=== PATIENT | female | born 1955 | race Caucasian/White ===

== ENCOUNTER 2021-02-05 13:30 | Inpatient (IN) | payer OTHER, BC ==
[2021-02-18] MEDS ORDERED: PEG 3350/NA SULF BICARB CL/KCL 4000 ML SOLN.RECON PO ONE (12:00)
[2021-02-18] MEDS ORDERED: PT OWN MED DRAWER 7, Y5N ONE ×3 (14:18→19:44)
[2021-02-18] MEDS: ERYTHROMYCIN BASE 250 MG TAB PO SCH ×4 (14:22→21:03)
[2021-02-18] MEDS: NEOMYCIN SO4 500 MG TABLET PO SCH ×4 (14:26→21:03)
[2021-02-18 14:34] LABS: HEMATOCRIT 27.2 % (32.4-45.2); HEMOGLOBIN 8.7 GM/dL (10.7-15.3); MCH 23.5 pg (25.7-33.7); MCHC 31.8 g/dl (32.0-36.0); MEAN CELL VOLUME 73.9 fl (80-96); PLATELET COUNT 127 10^3/uL (134-434); RBC 3.68 M/mm3 (3.60-5.2); RDW 18.6 % (11.6-15.6); WHITE BLOOD COUNT 4.3 K/mm3 (4.0-10.0)
[2021-02-18 14:37] LABS: INR 1.08 (0.83-1.09); PROTHROMBIN TIME (PATIENT) 12.6 SEC (9.7-13.0)
[2021-02-18 14:58] LABS: BLOOD UREA NITROGEN 10.3 mg/dL (7-18)
[2021-02-18 14:59] LABS: CALCIUM 8.6 mg/dL (8.5-10.1)
[2021-02-18 15:01] LABS: CREATININE 0.8 mg/dL (0.55-1.3)
[2021-02-18] MEDS ORDERED: ONDANSETRON 4 MG/2 ML VIAL IVPUSH ONE (15:50)
[2021-02-18] MEDS ORDERED: CHLORHEXIDINE GLUCONATE 4% CLEANSER FOR DECOLONIZATION TP SCH (22:00)
[2021-02-19] MEDS ORDERED: SODIUM CHLORIDE 1,000 ML IV SCH (00:05)
[2021-02-19] MEDS ORDERED: SODIUM PHOSPHATE/NA BIPHOS 133 ML ENEMA RC ONE (05:24)
[2021-02-19 07:08] LABS: BASO % 0.6 % (0-2.0); EOS % 2.1 % (0-4.5); HEMOGLOBIN 10.2 GM/dL (10.7-15.3); LYMPH % 32.4 % (8-40); MCHC 32.8 g/dl (32.0-36.0); MEAN CELL VOLUME 73.2 fl (80-96); MEAN PLT VOLUME 8.3 fl (7.5-11.1); MONO % 6.1 % (3.8-10.2); NEUT % 58.8 % (42.8-82.8); PLATELET COUNT 157 10^3/uL (134-434); RBC 4.23 M/mm3 (3.60-5.2); RDW 18.8 % (11.6-15.6); WHITE BLOOD COUNT 6.1 K/mm3 (4.0-10.0)
[2021-02-19] MEDS ORDERED: PHENAZOPYRIDINE HCL 100 MG TABLET (FP) PO ONE (07:30)
[2021-02-19] MEDS ORDERED: ERTAPENEM SODIUM 1 GM in SODIUM CHLORIDE 50 ML IVPB ONE (07:30)
[2021-02-19] MEDS ORDERED: ACETAMINOPHEN 1000 MG/100 ML VIAL IVPB ONE ×2 (07:30→17:45)
[2021-02-19] MEDS ORDERED: PROPOFOL 20 ML ONE ×2 (07:30)
[2021-02-19] MEDS ORDERED: SUCCINYLCHOLINE CHLORIDE 200 MG/10 ML SYRINGE ONE (07:31)
[2021-02-19] MEDS ORDERED: ROCURONIUM BROMIDE 50 MG/5 ML SYRINGE ONE ×2 (07:31→12:19)
[2021-02-19] MEDS ORDERED: PT OWN MED DRAWER 7, Y5N ONE ×2 (07:32→07:35)
[2021-02-19] MEDS ORDERED: ACETAMINOPHEN INJECTION 100 ML IVPB ONE (07:34)
[2021-02-19] MEDS ORDERED: DEXMEDETOMIDINE HCL 200 MCG/2 ML IVPB ONE (07:34)
[2021-02-19 07:56] LABS: CALCIUM 8.6 mg/dL (8.5-10.1)
[2021-02-19 07:57] LABS: BLOOD UREA NITROGEN 10.5 mg/dL (7-18)
[2021-02-19 08:00] LABS: CREATININE 1.1 mg/dL (0.55-1.3)
[2021-02-19] MEDS ORDERED: BUPIVACAINE LIPOSOME/PF (EXPAREL) 266 MG/20 ML VIAL ONE (08:01)
[2021-02-19] MEDS ORDERED: BUPIVACAINE HCL/PF 0.5% (5MG/ML) 10 ML VIAL ONE (08:02)
[2021-02-19] MEDS ORDERED: MIDAZOLAM HCL 2 MG/2 ML SINGLE DOSE VIAL ONE ×2 (08:08)
[2021-02-19] MEDS ORDERED: ERTAPENEM SODIUM 1 GM VIAL IVPB ONE (09:50)
[2021-02-19] MEDS ORDERED: KETAMINE HCL 200 MG/20 ML VIAL ONE (09:52)
[2021-02-19] MEDS ORDERED: PANTOPRAZOLE 40 MG TABLET PO SCH (10:00)
[2021-02-19] MEDS ORDERED: NEOSTIGMINE METHYLSULFATE 0.5 MG/ML - 10 ML MDV ONE (13:15)
[2021-02-19] MEDS ORDERED: PROMETHAZINE HCL 25 MG/1 ML VIAL IVPUSH PRN ×2 (13:37→15:04)
[2021-02-19] MEDS ORDERED: LACTATED RINGERS SOLUTION 1,000 ML IV SCH (13:45)
[2021-02-19] MEDS: SODIUM CHLORIDE 1,000 ML IV SCH (15:30)
[2021-02-19] MEDS ORDERED: oxyCODONE HCL 5 MG TABLET PO PRN ×2 (15:38→15:39)
[2021-02-19] MEDS ORDERED: morphine CARPU-JECT 4 MG/1 ML DISP.SYRIN IVPUSH PRN (15:39)
[2021-02-19] MEDS: morphine SULFATE 4 MG/ML VIAL IVPUSH PRN ×2 (17:25→23:32)
[2021-02-19] MEDS: ONDANSETRON 4 MG/2 ML VIAL IVPB PRN (17:25)
[2021-02-19] MEDS ORDERED: ACETAMINOPHEN 1000 MG/100 ML VIAL IVPB SCH (21:00)
[2021-02-19] MEDS ORDERED: CHLORHEXIDINE GLUCONATE 4% CLEANSER FOR DECOLONIZATION TP SCH (22:00)
[2021-02-20] MEDS: ACETAMINOPHEN 1000 MG/100 ML VIAL IVPB SCH ×3 (02:54→17:23)
[2021-02-20] MEDS: morphine SULFATE 4 MG/ML VIAL IVPUSH PRN ×2 (05:47→23:26)
[2021-02-20] MEDS: SODIUM CHLORIDE 1,000 ML IV SCH ×3 (05:55→22:40)
[2021-02-20] MEDS: ONDANSETRON 4 MG/2 ML VIAL IVPB PRN ×2 (05:56→23:31)
[2021-02-20 08:25] LABS: HEMATOCRIT 24.8 % (32.4-45.2); HEMOGLOBIN 8.1 GM/dL (10.7-15.3); LYMPH % 10.9 % (8-40); MCH 24.2 pg (25.7-33.7); MCHC 32.4 g/dl (32.0-36.0); MEAN CELL VOLUME 74.7 fl (80-96); MONO % 5.3 % (3.8-10.2); NEUT % 83.8 % (42.8-82.8); PLATELET COUNT 132 10^3/uL (134-434); RBC 3.33 M/mm3 (3.60-5.2); RDW 18.4 % (11.6-15.6); WHITE BLOOD COUNT 10.7 K/mm3 (4.0-10.0)
[2021-02-20 08:56] LABS: CALCIUM 8.1 mg/dL (8.5-10.1)
[2021-02-20 08:57] LABS: BLOOD UREA NITROGEN 10.5 mg/dL (7-18)
[2021-02-20 09:00] LABS: CREATININE 0.9 mg/dL (0.55-1.3)
[2021-02-20] MEDS: PANTOPRAZOLE SODIUM 40 MG VIAL IVPUSH SCH (10:39)
[2021-02-20] MEDS: ENOXAPARIN NA (PORCINE) 40 MG/0.4 ML DISP.SYRIN SQ SCH (10:39)
[2021-02-20 12:47] VITALS: BMI 26.7
[2021-02-21] MEDS: morphine SULFATE 4 MG/ML VIAL IVPUSH PRN ×2 (07:52→21:43)
[2021-02-21 09:09] LABS: BASO % 0.1 % (0-2.0); EOS % 0.2 % (0-4.5); HEMATOCRIT 23.3 % (32.4-45.2); HEMOGLOBIN 7.7 GM/dL (10.7-15.3); LYMPH % 16.3 % (8-40); MCH 24.7 pg (25.7-33.7); MCHC 33.2 g/dl (32.0-36.0); MEAN CELL VOLUME 74.3 fl (80-96); MEAN PLT VOLUME 8.8 fl (7.5-11.1); MONO % 4.9 % (3.8-10.2); NEUT % 78.5 % (42.8-82.8); PLATELET COUNT 124 10^3/uL (134-434); RBC 3.14 M/mm3 (3.60-5.2); WHITE BLOOD COUNT 9.1 K/mm3 (4.0-10.0)
[2021-02-21 09:23] LABS: CALCIUM 8.1 mg/dL (8.5-10.1)
[2021-02-21 09:24] LABS: BLOOD UREA NITROGEN 9.9 mg/dL (7-18)
[2021-02-21 09:27] LABS: CREATININE 0.9 mg/dL (0.55-1.3)
[2021-02-21] MEDS: ENOXAPARIN NA (PORCINE) 40 MG/0.4 ML DISP.SYRIN SQ SCH (09:41)
[2021-02-21] MEDS: PANTOPRAZOLE SODIUM 40 MG VIAL IVPUSH SCH (09:41)
[2021-02-21] MEDS: SODIUM CHLORIDE 1,000 ML IV SCH ×2 (09:45→17:02)
[2021-02-22 09:56] LABS: BASO % 0.3 % (0-2.0); EOS % 1.4 % (0-4.5); HEMATOCRIT 24.7 % (32.4-45.2); LYMPH % 15.3 % (8-40); MCH 24.5 pg (25.7-33.7); MCHC 32.4 g/dl (32.0-36.0); MEAN CELL VOLUME 75.7 fl (80-96); MEAN PLT VOLUME 8.8 fl (7.5-11.1); MONO % 5.1 % (3.8-10.2); NEUT % 77.9 % (42.8-82.8); PLATELET COUNT 153 10^3/uL (134-434); RBC 3.27 M/mm3 (3.60-5.2); RDW 18.9 % (11.6-15.6); WHITE BLOOD COUNT 8.2 K/mm3 (4.0-10.0)
[2021-02-22] MEDS: PANTOPRAZOLE SODIUM 40 MG VIAL IVPUSH SCH (10:16)
[2021-02-22] MEDS: ENOXAPARIN NA (PORCINE) 40 MG/0.4 ML DISP.SYRIN SQ SCH (10:16)
[2021-02-22 10:26] LABS: ALBUMIN 2.6 g/dl (3.4-5.0); BLOOD UREA NITROGEN 8.4 mg/dL (7-18)
[2021-02-22 10:29] LABS: CREATININE 0.8 mg/dL (0.55-1.3)
[2021-02-22 10:31] LABS: BILIRUBIN,TOTAL 0.9 mg/dL (0.2-1); TOT PROT 6.4 g/dl (6.4-8.2)
[2021-02-22] MEDS: SODIUM CHLORIDE 1,000 ML IV SCH (15:01)
[2021-02-23 08:28] LABS: BASO % 0.2 % (0-2.0); EOS % 0.6 % (0-4.5); HEMATOCRIT 26.5 % (32.4-45.2); HEMOGLOBIN 8.5 GM/dL (10.7-15.3); LYMPH % 14.7 % (8-40); MCH 24.3 pg (25.7-33.7); MEAN PLT VOLUME 8.3 fl (7.5-11.1); MONO % 3.8 % (3.8-10.2); NEUT % 80.7 % (42.8-82.8); PLATELET COUNT 176 10^3/uL (134-434); RBC 3.49 M/mm3 (3.60-5.2); RDW 19.1 % (11.6-15.6); WHITE BLOOD COUNT 6.1 K/mm3 (4.0-10.0)
[2021-02-23 09:01] LABS: BLOOD UREA NITROGEN 6.1 mg/dL (7-18); CALCIUM 8.2 mg/dL (8.5-10.1)
[2021-02-23 09:02] LABS: ALBUMIN 2.6 g/dl (3.4-5.0)
[2021-02-23 09:04] LABS: CREATININE 0.8 mg/dL (0.55-1.3)
[2021-02-23 09:06] LABS: TOT PROT 6.7 g/dl (6.4-8.2)
[2021-02-23 09:07] LABS: BILIRUBIN,TOTAL 1.3 mg/dL (0.2-1)
[2021-02-23] MEDS: PANTOPRAZOLE SODIUM 40 MG VIAL IVPUSH SCH (09:28)
[2021-02-23] MEDS ORDERED: ONDANSETRON 4 MG/2 ML VIAL IVPUSH PRN (17:55)
[2021-02-23] MEDS ORDERED: POTASSIUM CHLORIDE TABS 20 MEQ TABLET.ER (FP) PO ONE (18:19)
[2021-02-23] MEDS: DEXTROSE 5%-0.45% SALINE 1,000 ML IV SCH (20:44)
[2021-02-23] MEDS: POTASSIUM CHLORIDE TABS 20 MEQ TABLET.ER (FP) PO ONE ×2 (21:10→21:46)
[2021-02-23] MEDS ORDERED: DOCUSATE SODIUM 100 MG CAPSULE (FP) PO SCH (22:00)
[2021-02-24 01:00] LABS: BASO % 0.1 % (0-2.0); EOS % 0.5 % (0-4.5); HEMATOCRIT 24.9 % (32.4-45.2); LYMPH % 11.6 % (8-40); MCH 23.9 pg (25.7-33.7); MCHC 32.3 g/dl (32.0-36.0); MEAN CELL VOLUME 73.9 fl (80-96); MEAN PLT VOLUME 7.8 fl (7.5-11.1); MONO % 6.1 % (3.8-10.2); NEUT % 81.7 % (42.8-82.8); PLATELET COUNT 181 10^3/uL (134-434); RBC 3.36 M/mm3 (3.60-5.2); RDW 19.6 % (11.6-15.6)
[2021-02-24 01:21] LABS: CHLORIDE 106 mmol/L (98-107); SODIUM 141 mmol/L (136-145)
[2021-02-24 01:23] LABS: CALCIUM 8.2 mg/dL (8.5-10.1)
[2021-02-24 01:24] LABS: ALBUMIN 2.3 g/dl (3.4-5.0); BLOOD UREA NITROGEN 7.5 mg/dL (7-18); CO2 26 mmol/L (21-32); GLUCOSE,RANDOM 132 mg/dL (74-106); MAGNESIUM 1.8 mg/dL (1.8-2.4)
[2021-02-24 01:27] LABS: CREATININE 0.8 mg/dL (0.55-1.3); SGOT/AST 33 U/L (15-37); SGPT/ALT 21 U/L (13-61)
[2021-02-24 01:28] LABS: PHOSPHOROUS 2.8 mg/dL (2.5-4.9)
[2021-02-24 01:29] LABS: BILIRUBIN,TOTAL 1.3 mg/dL (0.2-1); TOT PROT 6.2 g/dl (6.4-8.2)
[2021-02-24 01:30] LABS: ALK PHOS 84 U/L (45-117)
[2021-02-24 01:43] LABS: ANION GAP 9 MMOL/L (8-16)
[2021-02-24] MEDS: KCL 10 MEQ IVPB 10 MEQ/100 ML INFUS.BAG IVPB SCH ×6 (02:35→13:58)
[2021-02-24] MEDS ORDERED: PROCHLORPERAZINE INJECTION 10 MG/2 ML VIAL IVPB ONE (02:57)
[2021-02-24] MEDS ORDERED: LABETALOL HCL 5 MG/1 ML (100MG/20 ML VIAL) IVPUSH ONE (02:58)
[2021-02-24] MEDS ORDERED: PT OWN MED DRAWER 7, Y5N ONE ×2 (04:54→09:50)
[2021-02-24] MEDS ORDERED: POTASSIUM CHLORIDE TABS 20 MEQ TABLET.ER (FP) PO ONE (08:00)
[2021-02-24 09:23] LABS: EOS % 0.3 % (0-4.5); HEMATOCRIT 25.5 % (32.4-45.2); HEMOGLOBIN 8.4 GM/dL (10.7-15.3); MCH 24.4 pg (25.7-33.7); MCHC 32.7 g/dl (32.0-36.0); MEAN CELL VOLUME 74.6 fl (80-96); MEAN PLT VOLUME 8.4 fl (7.5-11.1); MONO % 5.1 % (3.8-10.2); NEUT % 85.6 % (42.8-82.8); PLATELET COUNT 207 10^3/uL (134-434); RBC 3.42 M/mm3 (3.60-5.2); RDW 19.8 % (11.6-15.6); WHITE BLOOD COUNT 10.3 K/mm3 (4.0-10.0)
[2021-02-24 09:35] LABS: CALCIUM 8.4 mg/dL (8.5-10.1)
[2021-02-24 09:36] LABS: ALBUMIN 2.4 g/dl (3.4-5.0)
[2021-02-24 09:39] LABS: CREATININE 0.7 mg/dL (0.55-1.3)
[2021-02-24 09:40] LABS: BILIRUBIN,TOTAL 1.1 mg/dL (0.2-1); TOT PROT 6.4 g/dl (6.4-8.2)
[2021-02-24] MEDS: PANTOPRAZOLE 40 MG TABLET PO SCH (09:50)
[2021-02-24] MEDS: DEXTROSE 5%-0.45% SALINE 1,000 ML IV SCH (20:42)
[2021-02-25] MEDS: ENOXAPARIN NA (PORCINE) 40 MG/0.4 ML DISP.SYRIN SQ SCH (09:30)
[2021-02-25] MEDS: PANTOPRAZOLE 40 MG TABLET PO SCH (09:30)
[2021-02-25 09:31] LABS: BASO % 0.1 % (0-2.0); EOS % 1.3 % (0-4.5); HEMATOCRIT 25.8 % (32.4-45.2); HEMOGLOBIN 8.3 GM/dL (10.7-15.3); LYMPH % 9.2 % (8-40); MCH 24.6 pg (25.7-33.7); MCHC 32.4 g/dl (32.0-36.0); MEAN CELL VOLUME 75.8 fl (80-96); MEAN PLT VOLUME 8.4 fl (7.5-11.1); MONO % 7.4 % (3.8-10.2); PLATELET COUNT 194 10^3/uL (134-434); RDW 19.7 % (11.6-15.6); WHITE BLOOD COUNT 9.7 K/mm3 (4.0-10.0)
[2021-02-25] MEDS: DEXTROSE 5%-0.45% SALINE 1,000 ML IV SCH (12:26)
[2021-02-25 17:15] LABS: BLOOD UREA NITROGEN 13.3 mg/dL (7-18); CALCIUM 8.1 mg/dL (8.5-10.1)
[2021-02-25 18:25] LABS: BLOOD UREA NITROGEN 12.5 mg/dL (7-18); CALCIUM 8.2 mg/dL (8.5-10.1); CREATININE 0.9 mg/dL (0.55-1.3)
[2021-02-25] MEDS ORDERED: POTASSIUM CHLORIDE TABS 20 MEQ TABLET.ER (FP) PO ONE (18:45)
[2021-02-25] MEDS: KCL 10 MEQ IVPB 10 MEQ/100 ML INFUS.BAG IVPB SCH ×3 (18:45→23:30)
[2021-02-26] MEDS ORDERED: ACETAMINOPHEN 325 MG TABLET (FP) PO ONE (04:30)
[2021-02-26 08:50] LABS: BASO % 0.2 % (0-2.0); EOS % 1.8 % (0-4.5); HEMATOCRIT 23.9 % (32.4-45.2); HEMOGLOBIN 7.6 GM/dL (10.7-15.3); LYMPH % 11.1 % (8-40); MCH 24.1 pg (25.7-33.7); MEAN CELL VOLUME 75.4 fl (80-96); MEAN PLT VOLUME 7.9 fl (7.5-11.1); MONO % 8.1 % (3.8-10.2); NEUT % 78.8 % (42.8-82.8); PLATELET COUNT 165 10^3/uL (134-434); RBC 3.17 M/mm3 (3.60-5.2); RDW 19.6 % (11.6-15.6); WHITE BLOOD COUNT 9.3 K/mm3 (4.0-10.0)
[2021-02-26] MEDS: PANTOPRAZOLE 40 MG TABLET PO SCH (10:33)
[2021-02-26] MEDS: ENOXAPARIN NA (PORCINE) 40 MG/0.4 ML DISP.SYRIN SQ SCH (10:33)
[2021-02-26] MEDS ORDERED: FERROUS SO4 325 MG TABLET (FP) PO SCH (10:45)
[2021-02-26 11:17] LABS: ALBUMIN 2.1 g/dl (3.4-5.0); BILIRUBIN,TOTAL 1.1 mg/dL (0.2-1); BLOOD UREA NITROGEN 11.7 mg/dL (7-18); CALCIUM 8.2 mg/dL (8.5-10.1); CREATININE 0.8 mg/dL (0.55-1.3); TOT PROT 6.1 g/dl (6.4-8.2)
[2021-02-26 16:39] VITALS: BP 117/77; PULSE 100; TEMP 98.7
== END 2021-02-26 16:50 | disposition home or self-care (01) | DRG 330 ==
LOC: JICU 02-18 10:03 → J6S 02-19 14:51
PROVIDERS: ADMIT Surgery; ATTEND Internal Medicine
PROC: 0DNW0ZZ Release Peritoneum, Open Approach (ICD-10-PCS; 2021-02-19)
PROC: 0D1E0ZE Bypass Large Intestine to Large Intestine, Open Approach (ICD-10-PCS; 2021-02-19)
PROC: 8E0W0CZ Robotic Assisted Procedure of Trunk Region, Open Approach (ICD-10-PCS; 2021-02-19)
PROC: 3E1M48Z Irrigation of Peritoneal Cavity using Irrigating Substance, Percutaneous Endoscopic Approach (ICD-10-PCS; 2021-02-19)
PROC: 0DTF0ZZ Resection of Right Large Intestine, Open Approach (ICD-10-PCS; principal; 2021-02-19 08:00)
DX: C18.0 Malignant neoplasm of cecum (principal); D62 Acute posthemorrhagic anemia; K63.89 Other specified diseases of intestine; K21.9 Gastro-esophageal reflux disease without esophagitis; D64.9 Anemia, unspecified; K66.0 Peritoneal adhesions (postprocedural) (postinfection)
CPT/HCPCS: 36415; 36430; 36511; 80048; 80053; 82962; 83735; 84100; 84484; 85025; 85027; 85610; 86850; 86900; 86901; 86922; 87324; 87449; 88305-TC; 88309-TC; 93005; 93010; 94010; 94760; 97116-GP; 97162-GP; J0131; P9038; P9058

== ENCOUNTER 2021-03-09 16:20 | Inpatient (IN) | payer OTHER, BC ==
[2021-03-09] MEDS ORDERED: SODIUM CHLORIDE 0.9% 500 ML INFUS.BAG IV ONE (16:57)
[2021-03-09 17:22] LABS: BASO % 0.4 % (0-2.0); EOS % 0.9 % (0-4.5); HEMOGLOBIN 7.2 GM/dL (10.7-15.3); MCH 23.8 pg (25.7-33.7); MCHC 31.4 g/dl (32.0-36.0); MEAN CELL VOLUME 75.9 fl (80-96); MEAN PLT VOLUME 7.7 fl (7.5-11.1); MONO % 6.9 % (3.8-10.2); NEUT % 77.8 % (42.8-82.8); PLATELET COUNT 255 10^3/uL (134-434); RBC 3.03 M/mm3 (3.60-5.2); RDW 21.2 % (11.6-15.6); WHITE BLOOD COUNT 11.5 K/mm3 (4.0-10.0)
[2021-03-09 17:29] LABS: INR 1.36 (0.83-1.09); PROTHROMBIN TIME (PATIENT) 15.3 SEC (9.7-13.0)
[2021-03-09] MEDS ORDERED: PIPERACILLIN/TAZOB 3.375 GM 3.375 GM in DEXTROSE 5%-WATER - 50 ML IVPB ONE (17:29)
[2021-03-09] MEDS ORDERED: VANCOMYCIN 1 GM in D5W (PRE-DOCKED) 1,000 MG/250 ML IVPB ONE (17:29)
[2021-03-09 17:32] LABS: ACTIVATED PTT 31.6 SECONDS (25.2-36.5)
[2021-03-09] MEDS ORDERED: VANCOMYCIN 1 GRAM (PRE-DOCKED) 1,000 MG/250 ML BAG IVPB ONE (17:32)
[2021-03-09] MEDS ORDERED: PIPERACILLIN/TAZOB 3.375 GM 3.375 GM/50 ML BAG IVPB ONE (17:32)
[2021-03-09 17:43] LABS: CALCIUM 8.2 mg/dL (8.5-10.1)
[2021-03-09 17:46] LABS: CREATININE 0.9 mg/dL (0.55-1.3)
[2021-03-09 17:48] LABS: BILIRUBIN,TOTAL 0.7 mg/dL (0.2-1); TOT PROT 7.3 g/dl (6.4-8.2)
[2021-03-09 18:48] LABS: ANISOCYTOSIS 2+; MACROCYTOSIS 0; PLATELET ESTIMATE NORMAL; TARGET CELLS 1+
[2021-03-09 19:14] LABS: EPI CELLS 10 /uL (0-25.1); HYALINE CASTS 0 /uL (0-3.1); PH,URINE 6.5 (5.0-8.0); URINE APPEARANCE CLEAR; URINE BILIRUBIN NEGATIVE (NEGATIVE); URINE COLOR YELLOW; URINE GLUCOSE (UA) NEGATIVE (NEGATIVE); URINE KETONE NEGATIVE (NEGATIVE); URINE LEUK ESTERASE TRACE (NEGATIVE); URINE NITRITE POSITIVE (NEGATIVE); URINE PROTEIN NEGATIVE (NEGATIVE); URINE RBC 7 /uL (0-23.9); URINE UROBILINOGEN 0.2 mg/dL (0.2-1.0); URINE WBC 12 /uL (0-25.8)
[2021-03-09 19:17] LABS: URINE BACTERIA 39 /uL (0-1359)
[2021-03-10] MEDS ORDERED: VANCOMYCIN/WATER FOR INJ (PEG) 750 MG/150 ML BAG IVPB SCH ×2 (03:00)
[2021-03-10] MEDS ORDERED: PIPERACILLIN/TAZOB 2.25 GM 2.25 GM in DEXTROSE 5%-WATER - 50 ML IVPB SCH (03:00)
[2021-03-10] MEDS ORDERED: PIPERACILLIN/TAZOB 3.375 GM 3.375 GM/50 ML BAG IVPB ONE ×3 (05:36→18:13)
[2021-03-10] MEDS: PIPERACILLIN/TAZOB 3.375 GM 3.375 GM in DEXTROSE 5%-WATER - 50 ML IVPB SCH ×3 (05:41→18:10)
[2021-03-10] MEDS: DEXTROSE 5%-0.45% SALINE 1,000 ML IV SCH (05:41)
[2021-03-10] MEDS: VANCOMYCIN/WATER FOR INJ (PEG) 750 MG/150 ML BAG IVPB SCH ×2 (06:50→18:10)
[2021-03-10] MEDS ORDERED: FERROUS SO4 325 MG TABLET (FP) ONE (07:59)
[2021-03-10] MEDS ORDERED: PANTOPRAZOLE 40 MG TABLET ONE (07:59)
[2021-03-10] MEDS ORDERED: ENOXAPARIN NA (PORCINE) 40 MG/0.4 ML DISP.SYRIN SQ ONE (08:00)
[2021-03-10 08:11] LABS: BASO % 0.5 % (0-2.0); HEMATOCRIT 20.5 % (32.4-45.2); LYMPH % 14.3 % (8-40); MCH 24.5 pg (25.7-33.7); MCHC 32.1 g/dl (32.0-36.0); MEAN CELL VOLUME 76.4 fl (80-96); MEAN PLT VOLUME 7.5 fl (7.5-11.1); MONO % 5.8 % (3.8-10.2); NEUT % 76.4 % (42.8-82.8); PLATELET COUNT 206 10^3/uL (134-434); RBC 2.69 M/mm3 (3.60-5.2); RDW 20.9 % (11.6-15.6); WHITE BLOOD COUNT 6.9 K/mm3 (4.0-10.0)
[2021-03-10 08:25] LABS: HEMOGLOBIN 6.6 GM/dL (10.7-15.3)
[2021-03-10 08:27] LABS: BLOOD UREA NITROGEN 8.1 mg/dL (7-18); CALCIUM 7.5 mg/dL (8.5-10.1)
[2021-03-10 08:30] LABS: CREATININE 0.8 mg/dL (0.55-1.3)
[2021-03-10 08:32] LABS: BILIRUBIN,TOTAL 0.6 mg/dL (0.2-1); TOT PROT 5.6 g/dl (6.4-8.2)
[2021-03-10 08:37] LABS: ALBUMIN 1.4 g/dl (3.4-5.0)
[2021-03-10] MEDS: PANTOPRAZOLE 40 MG TABLET PO SCH (10:00)
[2021-03-10] MEDS: FERROUS SO4 325 MG TABLET (FP) PO SCH (10:00)
[2021-03-10] MEDS ORDERED: PIPERACILLIN/TAZOB 3.375 GM 3.375 GM in DEXTROSE 5%-WATER - 50 ML IVPB SCH (10:00)
[2021-03-10] MEDS: ENOXAPARIN NA (PORCINE) 40 MG/0.4 ML DISP.SYRIN SQ SCH (10:18)
[2021-03-10] MEDS ORDERED: VANCOMYCIN 1 GRAM (PRE-DOCKED) 1,000 MG/250 ML BAG IVPB ONE (18:12)
[2021-03-11] MEDS ORDERED: PIPERACILLIN/TAZOBACTAM 3.375 GM VIAL IVPB ONE ×3 (01:08→16:16)
[2021-03-11] MEDS ORDERED: DEXTROSE 5%-WATER - 50 ML IVPB ONE ×3 (01:08→16:16)
[2021-03-11] MEDS: DEXTROSE 5%-0.45% SALINE 1,000 ML IV SCH ×2 (01:12→08:54)
[2021-03-11] MEDS: PIPERACILLIN/TAZOB 3.375 GM 3.375 GM in DEXTROSE 5%-WATER - 50 ML IVPB SCH ×3 (01:14→17:23)
[2021-03-11] MEDS: PANTOPRAZOLE 40 MG TABLET PO SCH (09:06)
[2021-03-11] MEDS: FERROUS SO4 325 MG TABLET (FP) PO SCH (09:06)
[2021-03-11] MEDS: ENOXAPARIN NA (PORCINE) 40 MG/0.4 ML DISP.SYRIN SQ SCH (09:06)
[2021-03-11 12:02] VITALS: BMI 21.7
[2021-03-11 12:51] LABS: BASO % 0.7 % (0-2.0); EOS % 3.6 % (0-4.5); HEMOGLOBIN 10.2 GM/dL (10.7-15.3); LYMPH % 19.4 % (8-40); MEAN CELL VOLUME 78.7 fl (80-96); MEAN PLT VOLUME 7.7 fl (7.5-11.1); MONO % 9.2 % (3.8-10.2); NEUT % 67.1 % (42.8-82.8); PLATELET COUNT 207 10^3/uL (134-434); RBC 3.94 M/mm3 (3.60-5.2); RDW 19.9 % (11.6-15.6); WHITE BLOOD COUNT 6.2 K/mm3 (4.0-10.0)
[2021-03-11 13:11] LABS: CALCIUM 7.9 mg/dL (8.5-10.1)
[2021-03-11 13:12] LABS: ALBUMIN 1.6 g/dl (3.4-5.0); BLOOD UREA NITROGEN 7.1 mg/dL (7-18)
[2021-03-11 13:15] LABS: CREATININE 0.8 mg/dL (0.55-1.3)
[2021-03-11 13:17] LABS: BILIRUBIN,TOTAL 1.1 mg/dL (0.2-1); TOT PROT 6.1 g/dl (6.4-8.2)
[2021-03-11] MEDS ORDERED: MIDAZOLAM HCL 2 MG/2 ML SINGLE DOSE VIAL IVPB ONE ×2 (14:24→15:08)
[2021-03-11] MEDS ORDERED: POTASSIUM CHLORIDE TABS 20 MEQ TABLET.ER (FP) PO ONE (16:30)
[2021-03-12] MEDS ORDERED: DEXTROSE 5%-WATER - 50 ML IVPB ONE ×3 (00:25→17:48)
[2021-03-12] MEDS ORDERED: PIPERACILLIN/TAZOBACTAM 3.375 GM VIAL IVPB ONE ×3 (00:25→17:48)
[2021-03-12] MEDS: PIPERACILLIN/TAZOB 3.375 GM 3.375 GM in DEXTROSE 5%-WATER - 50 ML IVPB SCH ×3 (01:03→18:00)
[2021-03-12] MEDS: DEXTROSE 5%-0.45% SALINE 1,000 ML IV SCH ×3 (01:04→14:10)
[2021-03-12 08:27] LABS: BASO % 0.6 % (0-2.0); EOS % 3.6 % (0-4.5); HEMOGLOBIN 9.8 GM/dL (10.7-15.3); LYMPH % 20.2 % (8-40); MCH 26.3 pg (25.7-33.7); MCHC 32.6 g/dl (32.0-36.0); MEAN CELL VOLUME 80.6 fl (80-96); MEAN PLT VOLUME 7.8 fl (7.5-11.1); MONO % 9.7 % (3.8-10.2); NEUT % 65.9 % (42.8-82.8); PLATELET COUNT 198 10^3/uL (134-434); RBC 3.72 M/mm3 (3.60-5.2); WHITE BLOOD COUNT 6.2 K/mm3 (4.0-10.0)
[2021-03-12 09:25] LABS: CALCIUM 7.7 mg/dL (8.5-10.1)
[2021-03-12 09:26] LABS: ALBUMIN 1.5 g/dl (3.4-5.0)
[2021-03-12 09:29] LABS: CREATININE 0.9 mg/dL (0.55-1.3)
[2021-03-12 09:30] LABS: BILIRUBIN,TOTAL 0.8 mg/dL (0.2-1); TOT PROT 5.8 g/dl (6.4-8.2)
[2021-03-12] MEDS: ENOXAPARIN NA (PORCINE) 40 MG/0.4 ML DISP.SYRIN SQ SCH (10:23)
[2021-03-12] MEDS: FERROUS SO4 325 MG TABLET (FP) PO SCH (10:23)
[2021-03-12] MEDS: PANTOPRAZOLE 40 MG TABLET PO SCH (10:24)
[2021-03-12] MEDS ORDERED: POTASSIUM CHLORIDE TABS 20 MEQ TABLET.ER (FP) PO ONE (17:44)
[2021-03-13] MEDS ORDERED: PIPERACILLIN/TAZOBACTAM 3.375 GM VIAL IVPB ONE ×3 (01:15→17:03)
[2021-03-13] MEDS ORDERED: DEXTROSE 5%-WATER - 50 ML IVPB ONE ×3 (01:16→17:04)
[2021-03-13] MEDS: PIPERACILLIN/TAZOB 3.375 GM 3.375 GM in DEXTROSE 5%-WATER - 50 ML IVPB SCH ×3 (01:40→17:12)
[2021-03-13] MEDS: DEXTROSE 5%-0.45% SALINE 1,000 ML IV SCH (05:14)
[2021-03-13 07:53] LABS: BASO % 0.5 % (0-2.0); EOS % 4.9 % (0-4.5); HEMATOCRIT 30.7 % (32.4-45.2); HEMOGLOBIN 10.1 GM/dL (10.7-15.3); LYMPH % 24.5 % (8-40); MCH 26.4 pg (25.7-33.7); MEAN PLT VOLUME 7.5 fl (7.5-11.1); MONO % 9.4 % (3.8-10.2); NEUT % 60.7 % (42.8-82.8); PLATELET COUNT 199 10^3/uL (134-434); RBC 3.83 M/mm3 (3.60-5.2); RDW 20.5 % (11.6-15.6); WHITE BLOOD COUNT 6.4 K/mm3 (4.0-10.0)
[2021-03-13 07:57] LABS: ALBUMIN 1.7 g/dl (3.4-5.0); BLOOD UREA NITROGEN 3.8 mg/dL (7-18); CALCIUM 7.9 mg/dL (8.5-10.1)
[2021-03-13 08:00] LABS: CREATININE 0.9 mg/dL (0.55-1.3)
[2021-03-13 08:02] LABS: BILIRUBIN,TOTAL 0.6 mg/dL (0.2-1); TOT PROT 6.2 g/dl (6.4-8.2)
[2021-03-13] MEDS: FERROUS SO4 325 MG TABLET (FP) PO SCH (09:04)
[2021-03-13] MEDS: PANTOPRAZOLE 40 MG TABLET PO SCH (09:04)
[2021-03-13] MEDS: ENOXAPARIN NA (PORCINE) 40 MG/0.4 ML DISP.SYRIN SQ SCH (09:04)
[2021-03-14] MEDS ORDERED: DEXTROSE 5%-WATER - 50 ML IVPB ONE ×3 (00:50→17:43)
[2021-03-14] MEDS ORDERED: PIPERACILLIN/TAZOBACTAM 3.375 GM VIAL IVPB ONE ×4 (00:50→17:43)
[2021-03-14] MEDS: PIPERACILLIN/TAZOB 3.375 GM 3.375 GM in DEXTROSE 5%-WATER - 50 ML IVPB SCH ×3 (01:33→19:12)
[2021-03-14] MEDS: DEXTROSE 5%-0.45% SALINE 1,000 ML IV SCH (02:10)
[2021-03-14] MEDS: ENOXAPARIN NA (PORCINE) 40 MG/0.4 ML DISP.SYRIN SQ SCH (11:12)
[2021-03-14] MEDS: FERROUS SO4 325 MG TABLET (FP) PO SCH (11:12)
[2021-03-14] MEDS: PANTOPRAZOLE 40 MG TABLET PO SCH (11:12)
[2021-03-15] MEDS ORDERED: PIPERACILLIN/TAZOBACTAM 3.375 GM VIAL IVPB ONE ×3 (01:30→17:08)
[2021-03-15] MEDS ORDERED: DEXTROSE 5%-WATER - 50 ML IVPB ONE ×3 (01:31→17:08)
[2021-03-15] MEDS: PIPERACILLIN/TAZOB 3.375 GM 3.375 GM in DEXTROSE 5%-WATER - 50 ML IVPB SCH ×3 (01:45→17:14)
[2021-03-15 08:12] LABS: BASO % 0.8 % (0-2.0); EOS % 7.1 % (0-4.5); HEMATOCRIT 29.5 % (32.4-45.2); HEMOGLOBIN 9.6 GM/dL (10.7-15.3); LYMPH % 25.2 % (8-40); MCH 26.3 pg (25.7-33.7); MCHC 32.5 g/dl (32.0-36.0); MEAN CELL VOLUME 80.9 fl (80-96); MEAN PLT VOLUME 7.8 fl (7.5-11.1); MONO % 8.9 % (3.8-10.2); PLATELET COUNT 166 10^3/uL (134-434); RBC 3.64 M/mm3 (3.60-5.2); RDW 21.1 % (11.6-15.6); WHITE BLOOD COUNT 5.4 K/mm3 (4.0-10.0)
[2021-03-15 08:30] LABS: CALCIUM 7.9 mg/dL (8.5-10.1)
[2021-03-15 08:31] LABS: ALBUMIN 1.6 g/dl (3.4-5.0); BLOOD UREA NITROGEN 3.6 mg/dL (7-18)
[2021-03-15 08:33] LABS: CREATININE 0.8 mg/dL (0.55-1.3)
[2021-03-15 08:36] LABS: BILIRUBIN,TOTAL 0.6 mg/dL (0.2-1); TOT PROT 5.8 g/dl (6.4-8.2)
[2021-03-15] MEDS: FERROUS SO4 325 MG TABLET (FP) PO SCH (09:12)
[2021-03-15] MEDS: ENOXAPARIN NA (PORCINE) 40 MG/0.4 ML DISP.SYRIN SQ SCH (09:12)
[2021-03-15] MEDS: PANTOPRAZOLE 40 MG TABLET PO SCH (09:12)
[2021-03-15] MEDS: DEXTROSE 5%-0.45% SALINE 1,000 ML IV SCH (14:30)
[2021-03-16] MEDS ORDERED: PIPERACILLIN/TAZOBACTAM 3.375 GM VIAL IVPB ONE ×3 (01:00→16:24)
[2021-03-16] MEDS ORDERED: DEXTROSE 5%-WATER - 50 ML IVPB ONE ×3 (01:01→16:24)
[2021-03-16] MEDS: PIPERACILLIN/TAZOB 3.375 GM 3.375 GM in DEXTROSE 5%-WATER - 50 ML IVPB SCH ×3 (01:13→17:11)
[2021-03-16] MEDS: ENOXAPARIN NA (PORCINE) 40 MG/0.4 ML DISP.SYRIN SQ SCH (09:25)
[2021-03-16] MEDS: FERROUS SO4 325 MG TABLET (FP) PO SCH (09:25)
[2021-03-16] MEDS: PANTOPRAZOLE 40 MG TABLET PO SCH (09:25)
[2021-03-16] MEDS: DEXTROSE 5%-0.45% SALINE 1,000 ML IV SCH (09:26)
[2021-03-16 10:16] LABS: BASO % 0.7 % (0-2.0); EOS % 6.1 % (0-4.5); HEMATOCRIT 29.9 % (32.4-45.2); HEMOGLOBIN 9.7 GM/dL (10.7-15.3); LYMPH % 25.8 % (8-40); MCH 26.3 pg (25.7-33.7); MCHC 32.5 g/dl (32.0-36.0); MEAN CELL VOLUME 81.1 fl (80-96); MEAN PLT VOLUME 7.5 fl (7.5-11.1); MONO % 8.2 % (3.8-10.2); NEUT % 59.2 % (42.8-82.8); PLATELET COUNT 149 10^3/uL (134-434); RBC 3.69 M/mm3 (3.60-5.2); RDW 21.7 % (11.6-15.6); WHITE BLOOD COUNT 4.5 K/mm3 (4.0-10.0)
[2021-03-16 10:28] LABS: ALBUMIN 1.7 g/dl (3.4-5.0); BLOOD UREA NITROGEN 4.3 mg/dL (7-18); CALCIUM 7.8 mg/dL (8.5-10.1)
[2021-03-16 10:33] LABS: BILIRUBIN,TOTAL 0.5 mg/dL (0.2-1); CREATININE 0.9 mg/dL (0.55-1.3)
[2021-03-16 11:38] LABS: ANISOCYTOSIS 2+; MACROCYTOSIS 0; PLATELET ESTIMATE DECREASED
[2021-03-16] MEDS ORDERED: ACETAMINOPHEN 325 MG TABLET (FP) PO PRN (14:54)
[2021-03-16] MEDS ORDERED: POTASSIUM CHLORIDE TABS 20 MEQ TABLET.ER (FP) PO ONE (20:56)
[2021-03-17] MEDS ORDERED: PIPERACILLIN/TAZOBACTAM 3.375 GM VIAL IVPB ONE ×3 (00:55→16:43)
[2021-03-17] MEDS ORDERED: DEXTROSE 5%-WATER - 50 ML IVPB ONE ×3 (00:56→16:44)
[2021-03-17] MEDS: PIPERACILLIN/TAZOB 3.375 GM 3.375 GM in DEXTROSE 5%-WATER - 50 ML IVPB SCH ×2 (01:26→10:00)
[2021-03-17 09:36] LABS: BASO % 0.6 % (0-2.0); EOS % 3.3 % (0-4.5); HEMOGLOBIN 10.5 GM/dL (10.7-15.3); LYMPH % 23.3 % (8-40); MCH 26.7 pg (25.7-33.7); MCHC 32.7 g/dl (32.0-36.0); MEAN CELL VOLUME 81.7 fl (80-96); MEAN PLT VOLUME 8.3 fl (7.5-11.1); MONO % 6.1 % (3.8-10.2); NEUT % 66.7 % (42.8-82.8); PLATELET COUNT 179 10^3/uL (134-434); RBC 3.91 M/mm3 (3.60-5.2); RDW 21.8 % (11.6-15.6)
[2021-03-17] MEDS: PANTOPRAZOLE 40 MG TABLET PO SCH (10:00)
[2021-03-17] MEDS: FERROUS SO4 325 MG TABLET (FP) PO SCH (10:00)
[2021-03-17 10:25] LABS: BLOOD UREA NITROGEN 4.6 mg/dL (7-18); CALCIUM 8.3 mg/dL (8.5-10.1)
[2021-03-17 10:27] LABS: TOT PROT 6.8 g/dl (6.4-8.2)
[2021-03-17 10:28] LABS: CREATININE 0.8 mg/dL (0.55-1.3)
[2021-03-17 10:30] LABS: BILIRUBIN,TOTAL 0.6 mg/dL (0.2-1)
[2021-03-17] MEDS: AMOX TR/POT CLAV 875MG/125MG TABLETS (FP) PO SCH (17:51)
[2021-03-18 08:53] LABS: BASO % 0.7 % (0-2.0); EOS % 4.2 % (0-4.5); HEMATOCRIT 31.3 % (32.4-45.2); HEMOGLOBIN 10.3 GM/dL (10.7-15.3); LYMPH % 36.1 % (8-40); MCH 26.6 pg (25.7-33.7); MCHC 32.9 g/dl (32.0-36.0); MEAN PLT VOLUME 7.9 fl (7.5-11.1); MONO % 5.7 % (3.8-10.2); NEUT % 53.3 % (42.8-82.8); PLATELET COUNT 151 10^3/uL (134-434); RBC 3.86 M/mm3 (3.60-5.2); RDW 22.8 % (11.6-15.6); WHITE BLOOD COUNT 5.6 K/mm3 (4.0-10.0)
[2021-03-18 09:06] LABS: CALCIUM 8.4 mg/dL (8.5-10.1)
[2021-03-18 09:07] LABS: BLOOD UREA NITROGEN 6.6 mg/dL (7-18)
[2021-03-18 09:09] LABS: CREATININE 0.8 mg/dL (0.55-1.3)
[2021-03-18 09:12] LABS: BILIRUBIN,TOTAL 0.6 mg/dL (0.2-1); TOT PROT 6.6 g/dl (6.4-8.2)
[2021-03-18] MEDS: AMOX TR/POT CLAV 875MG/125MG TABLETS (FP) PO SCH ×2 (09:55→16:57)
[2021-03-18] MEDS: PANTOPRAZOLE 40 MG TABLET PO SCH (09:55)
[2021-03-18] MEDS: POTASSIUM CHLORIDE TABS 20 MEQ TABLET.ER (FP) PO SCH (22:04)
[2021-03-19] MEDS ORDERED: PROMETHAZINE HCL 25 MG/1 ML VIAL IVPUSH PRN ×2 (09:48→10:06)
[2021-03-19] MEDS ORDERED: LACTATED RINGERS SOLUTION 1,000 ML IV SCH (10:00)
[2021-03-19] MEDS: AMOX TR/POT CLAV 875MG/125MG TABLETS (FP) PO SCH ×2 (12:02→18:16)
[2021-03-19] MEDS: PANTOPRAZOLE 40 MG TABLET PO SCH (12:02)
[2021-03-19] MEDS: POTASSIUM CHLORIDE TABS 20 MEQ TABLET.ER (FP) PO SCH (12:02)
[2021-03-19] MEDS: ACETAMINOPHEN 325 MG TABLET (FP) PO PRN ×2 (12:33→21:21)
[2021-03-19 15:18] LABS: BASO % 0.6 % (0-2.0); HEMATOCRIT 29.8 % (32.4-45.2); HEMOGLOBIN 9.6 GM/dL (10.7-15.3); LYMPH % 31.3 % (8-40); MCH 26.4 pg (25.7-33.7); MCHC 32.1 g/dl (32.0-36.0); MEAN CELL VOLUME 82.3 fl (80-96); MONO % 6.3 % (3.8-10.2); NEUT % 57.8 % (42.8-82.8); PLATELET COUNT 146 10^3/uL (134-434); RBC 3.62 M/mm3 (3.60-5.2); RDW 22.6 % (11.6-15.6); WHITE BLOOD COUNT 5.7 K/mm3 (4.0-10.0)
[2021-03-19 15:28] LABS: CALCIUM 8.2 mg/dL (8.5-10.1)
[2021-03-19 15:29] LABS: ALBUMIN 1.7 g/dl (3.4-5.0); BLOOD UREA NITROGEN 6.8 mg/dL (7-18)
[2021-03-19 15:32] LABS: CREATININE 0.8 mg/dL (0.55-1.3)
[2021-03-19 15:33] LABS: BILIRUBIN,TOTAL 0.4 mg/dL (0.2-1); TOT PROT 5.9 g/dl (6.4-8.2)
[2021-03-19 15:41] LABS: ANISOCYTOSIS 1+; MACROCYTOSIS 1+; PLATELET ESTIMATE DECREASED
[2021-03-19] MEDS: LACTATED RINGERS SOLUTION 1,000 ML IV SCH (16:16)
[2021-03-20] MEDS: AMOX TR/POT CLAV 875MG/125MG TABLETS (FP) PO SCH (09:18)
[2021-03-20] MEDS: LACTATED RINGERS SOLUTION 1,000 ML IV SCH (09:20)
[2021-03-20] MEDS ORDERED: PANTOPRAZOLE 40 MG TABLET PO SCH (10:00)
[2021-03-20] MEDS ORDERED: POTASSIUM CHLORIDE TABS 20 MEQ TABLET.ER (FP) PO SCH (10:00)
[2021-03-20 14:47] VITALS: BP 111/68; PULSE 99; TEMP 98.8
== END 2021-03-20 15:55 | disposition home health service (06) | DRG 857 ==
LOC: JER 16:20 → JERBED 22:44 → J7W 03-10 21:47
PROVIDERS: ADMIT Internal Medicine; ATTEND Internal Medicine
PROC: 30233N1 Transfusion of Nonautologous Red Blood Cells into Peripheral Vein, Percutaneous Approach (ICD-10-PCS; 2021-03-10)
PROC: 0W9J30Z Drainage of Pelvic Cavity with Drainage Device, Percutaneous Approach (ICD-10-PCS; 2021-03-11)
PROC: 0WPG33Z Removal of Infusion Device from Peritoneal Cavity, Percutaneous Approach (ICD-10-PCS; principal; 2021-03-17)
PROC: 0JB80ZZ Excision of Abdomen Subcutaneous Tissue and Fascia, Open Approach (ICD-10-PCS; 2021-03-19)
PROC: 2W13X6Z Compression of Abdominal Wall using Pressure Dressing (ICD-10-PCS; 2021-03-19)
PROC: 3E10X8X Irrigation of Skin and Mucous Membranes using Irrigating Substance, Diagnostic (ICD-10-PCS; 2021-03-19)
DX: T81.42XA Infection following a procedure, deep incisional surgical site, initial encounter (principal); L03.311 Cellulitis of abdominal wall; C18.9 Malignant neoplasm of colon, unspecified; J98.11 Atelectasis; Y83.8 Other surgical procedures as the cause of abnormal reaction of the patient, or of later complication, without mention of misadventure at the time of the procedure; K21.9 Gastro-esophageal reflux disease without esophagitis; K44.9 Diaphragmatic hernia without obstruction or gangrene; D64.9 Anemia, unspecified; B95.61 Methicillin susceptible Staphylococcus aureus infection as the cause of diseases classified elsewhere; N73.9 Female pelvic inflammatory disease, unspecified; Z90.49 Acquired absence of other specified parts of digestive tract
CPT/HCPCS: 36415; 36430; 49407; 49424; 74177-TC; 80053; 81003; 84484; 85025; 85610; 85730; 86850; 86900; 86901; 86922; 87040; 87070; 87075; 87076; 87086; 87102; 87116; 87186; 87205; 87206; 87210; 93005; 93010; 94760; 99285-25; C9803; P9058; Q9967; U0003; U0005

== ENCOUNTER 2024-06-27 10:58 | Inpatient (IN) | payer OTHER, BC ==
[2024-06-27 11:09] VITALS: BMI 33.7
[2024-06-27] MEDS: SODIUM CHLORIDE 0.9% 500 ML INFUS.BAG IV ONE (13:00)
[2024-06-27] MEDS ORDERED: ACETAMINOPHEN INJECTION 100 ML ONE (13:20)
[2024-06-27] MEDS ORDERED: ONDANSETRON 4 MG/2 ML VIAL ONE (13:20)
[2024-06-27] MEDS ORDERED: FAMOTIDINE 20 MG/50 ML IVPB 20 MG/50 ML MG IVPB ONE (13:21)
[2024-06-27 13:46] LABS: ABSOLUTE IMMATURE GRANULOCYTES 0.02 x10^3/uL (0.0-0.031); BASOPHILS # 0.02 x10^3/uL (0.01-0.08); EOSINOPHIL % 1.2 % (0.7-5.8); EOSINOPHILS # 0.07 x10^3/uL (0.04-0.36); HEMATOCRIT 34.9 % (34.1-44.9); HEMOGLOBIN 11.4 g/dL (11.2-15.7); MCHC 32.7 g/dl (32.2-35.5); MEAN CELL VOLUME 94.3 fl (79.4-94.8); MEAN PLT VOLUME 11.3 fl (9.4-12.3); MONOCYTE # 0.38 x10^3/uL (0.24-0.86); MONOCYTE % 6.3 % (4.7-12.5); PLATELET COUNT # 71 x10^3/uL (182-369); RDW 12.4 % (12.4-16.4)
[2024-06-27] MEDS: ACETAMINOPHEN 1000 MG/100 ML BAG IVPB ONE (13:47)
[2024-06-27] MEDS: FAMOTIDINE 20 MG/50 ML IVPB 20 MG/50 ML MG IVPB ONE (13:48)
[2024-06-27] MEDS: ONDANSETRON 4 MG/2 ML VIAL IVPUSH ONE (13:48)
[2024-06-27 14:03] LABS: POTASSIUM 3.8 mmol/L (3.5-5.1)
[2024-06-27 14:06] LABS: ALBUMIN 3.3 g/dl (3.4-5.0); CALCIUM 8.6 mg/dL (8.5-10.1)
[2024-06-27 14:07] LABS: MAGNESIUM 1.6 mg/dL (1.8-2.4)
[2024-06-27 14:11] LABS: BILIRUBIN,TOTAL 2.5 mg/dL (0.2-1); TOT PROT 7.5 g/dl (6.4-8.2)
[2024-06-27 14:12] LABS: CREATININE 0.9 mg/dL (0.55-1.3)
[2024-06-27 14:15] LABS: EPI CELLS 28 /uL (0-25.1); HYALINE CASTS 1 /uL (0-3.1); PH,URINE 6.5 (5.0-8.0); URINE APPEARANCE CLEAR; URINE BACTERIA 403 /uL (0-1359); URINE BILIRUBIN NEGATIVE (NEGATIVE); URINE COLOR DK YELLOW; URINE GLUCOSE (UA) NEGATIVE (NEGATIVE); URINE KETONE NEGATIVE (NEGATIVE); URINE LEUK ESTERASE 1+ (NEGATIVE); URINE NITRITE NEGATIVE (NEGATIVE); URINE PROTEIN NEGATIVE (NEGATIVE); URINE RBC 11 /uL (0-23.9); URINE UROBILINOGEN 0.2 mg/dL (0.2-1.0); URINE WBC 18 /uL (0-25.8)
[2024-06-27] MEDS: PIPERACILLIN/TAZOB 4.5 GM 4.5 GM in DEXTROSE 5%-WATER 100 ML IVPB ONE (15:27)
[2024-06-27] MEDS ORDERED: ONDANSETRON 4 MG/2 ML VIAL IVPUSH PRN (17:56)
[2024-06-27] MEDS ORDERED: PIPERACILLIN/TAZOB 3.375 GM 3.375 GM in DEXTROSE 5%-WATER - 50 ML IVPB SCH ×2 (18:00→18:15)
[2024-06-27] MEDS: LACTATED RINGERS SOLUTION 1,000 ML/1,000 ML INFUS.BAG IV SCH (20:00)
[2024-06-27] MEDS: PIPERACILLIN/TAZOB 3.375 GM 50 ML IVPB SCH (21:37)
[2024-06-28] MEDS: PANTOPRAZOLE SODIUM 40 MG VIAL IVPUSH SCH (09:09)
[2024-06-28 09:35] LABS: ABSOLUTE IMMATURE GRANULOCYTES 0.01 x10^3/uL (0.0-0.031); BASOPHILS # 0.02 x10^3/uL (0.01-0.08); EOSINOPHIL % 6.1 % (0.7-5.8); EOSINOPHILS # 0.22 x10^3/uL (0.04-0.36); HEMATOCRIT 32.5 % (34.1-44.9); HEMOGLOBIN 10.6 g/dL (11.2-15.7); MCHC 32.6 g/dl (32.2-35.5); MEAN CELL VOLUME 94.2 fl (79.4-94.8); MONOCYTE % 8.4 % (4.7-12.5); RDW 12.6 % (12.4-16.4)
[2024-06-28 09:52] LABS: POTASSIUM 3.3 mmol/L (3.5-5.1)
[2024-06-28] MEDS ORDERED: ENOXAPARIN NA (PORCINE) 40 MG/0.4 ML DISP.SYRIN SQ SCH (10:00)
[2024-06-28 11:01] LABS: BLOOD UREA NITROGEN 11.4 mg/dL (7-18)
[2024-06-28 11:03] LABS: CREATININE 1.1 mg/dL (0.55-1.3)
[2024-06-28 11:05] LABS: BILIRUBIN,TOTAL 2.5 mg/dL (0.2-1); TOT PROT 6.4 g/dl (6.4-8.2)
[2024-06-28 11:28] LABS: CALCIUM 8.2 mg/dL (8.5-10.1)
[2024-06-28 11:29] LABS: ALBUMIN 2.9 g/dl (3.4-5.0)
[2024-06-28 14:49] VITALS: RESP 18
[2024-06-28 15:27] LABS: MEAN PLT VOLUME 11.7 fl (9.4-12.3); PLATELET COUNT # 55 x10^3/uL (182-369)
[2024-06-28] MEDS: PIPERACILLIN/TAZOB 3.375 GM 50 ML IVPB SCH (21:19)
[2024-06-29] MEDS: LEVOTHYROXINE NA 88 MCG TABLET (FP) PO SCH (06:05)
[2024-06-29 08:36] LABS: ABSOLUTE IMMATURE GRANULOCYTES 0.02 x10^3/uL (0.0-0.031); BASOPHILS # 0.02 x10^3/uL (0.01-0.08); EOSINOPHIL % 5.1 % (0.7-5.8); EOSINOPHILS # 0.19 x10^3/uL (0.04-0.36); HEMATOCRIT 32.9 % (34.1-44.9); HEMOGLOBIN 10.6 g/dL (11.2-15.7); MCHC 32.2 g/dl (32.2-35.5); MEAN CELL VOLUME 94.5 fl (79.4-94.8); MEAN PLT VOLUME 11.6 fl (9.4-12.3); MONOCYTE # 0.32 x10^3/uL (0.24-0.86); MONOCYTE % 8.6 % (4.7-12.5); PLATELET COUNT # 55 x10^3/uL (182-369); RDW 12.9 % (12.4-16.4)
[2024-06-29 08:37] LABS: INR 1.26 (0.83-1.09); PROTHROMBIN TIME (PATIENT) 13.7 SEC (9.7-13.0)
[2024-06-29 09:02] LABS: POTASSIUM 3.4 mmol/L (3.5-5.1)
[2024-06-29 09:27] LABS: ALBUMIN 2.8 g/dl (3.4-5.0); BLOOD UREA NITROGEN 10.3 mg/dL (7-18); CALCIUM 8.4 mg/dL (8.5-10.1)
[2024-06-29 09:30] LABS: CREATININE 1.1 mg/dL (0.55-1.3)
[2024-06-29 09:31] LABS: BILIRUBIN,TOTAL 1.8 mg/dL (0.2-1); TOT PROT 6.4 g/dl (6.4-8.2)
[2024-06-29 15:11] VITALS: TEMP 98.1
[2024-06-29 21:36] LABS: HCV DIAGNOSTIC IN-HOUSE W/RFLX NON-REACTIVE (NONREACTIVE)
[2024-06-30 09:02] LABS: ABSOLUTE IMMATURE GRANULOCYTES 0.02 x10^3/uL (0.0-0.031); BASOPHILS # 0.02 x10^3/uL (0.01-0.08); EOSINOPHILS # 0.21 x10^3/uL (0.04-0.36); HEMATOCRIT 32.8 % (34.1-44.9); HEMOGLOBIN 10.8 g/dL (11.2-15.7); MCHC 32.9 g/dl (32.2-35.5); MEAN CELL VOLUME 93.2 fl (79.4-94.8); MEAN PLT VOLUME 10.5 fl (9.4-12.3); MONOCYTE # 0.29 x10^3/uL (0.24-0.86); MONOCYTE % 8.3 % (4.7-12.5); PLATELET COUNT # 56 x10^3/uL (182-369); RDW 12.8 % (12.4-16.4)
[2024-06-30 09:17] LABS: POTASSIUM 3.4 mmol/L (3.5-5.1)
[2024-06-30 09:35] LABS: BLOOD UREA NITROGEN 9.3 mg/dL (7-18)
[2024-06-30 09:36] LABS: CALCIUM 8.4 mg/dL (8.5-10.1)
[2024-06-30 09:40] LABS: TOT PROT 6.6 g/dl (6.4-8.2)
[2024-06-30 09:41] LABS: BILIRUBIN,TOTAL 1.3 mg/dL (0.2-1)
[2024-06-30 10:33] VITALS: BP 114/86; PULSE 70
[2024-06-30] MEDS: POTASSIUM CHLORIDE ORAL LIQUID 20 MEQ/15 ML PO ONE (10:55)
== END 2024-06-30 02:08 | disposition home or self-care (01) | DRG 445 ==
LOC: JER 10:58 → OBSVTOIN 15:10 → JERBED 15:10 → J6S 18:00
PROVIDERS: ADMIT Internal Medicine; ATTEND Internal Medicine
DX: K80.00 Calculus of gallbladder with acute cholecystitis without obstruction (principal); C18.9 Malignant neoplasm of colon, unspecified; K21.9 Gastro-esophageal reflux disease without esophagitis; K74.60 Unspecified cirrhosis of liver; R79.89 Other specified abnormal findings of blood chemistry; E03.9 Hypothyroidism, unspecified; R74.01 Elevation of levels of liver transaminase levels
CPT/HCPCS: 0241U-QW; 36415; 71046-TC-FY; 74182-TC; 76705-TC; 80053; 81003; 82150; 82550; 82728; 83540; 83550; 83690; 83735; 84100; 84484; 85025; 85610; 86704; 86708; 86803; 86850; 86900; 86901; 87086; 87340; 87517; 93005; 93010; 99285-25; J0131